=== PATIENT | female | born 2000 | race Caucasian/White ===

== ENCOUNTER → 2024-05-14 13:46 | Outpatient (CLI) | payer OTHER, SELFPAY ==
[2024-05-14 15:23] LABS: Natera Collection Specimen Collected
[2024-05-14 15:29] LABS: Add Manual Diff / Slide Review NO; Basophils Absolute Auto 0 /uL (0-100); Basophils Percent Auto 0.3 % (0-2); Eosinophils Absolute Auto 200 /uL (0-450); Eosinophils Percent Auto 1.4 % (2-4); Hematocrit 39.5 % (36-46); Hemoglobin 13.2 g/dL (12.0-16.0); Lymphocytes Absolute Auto 2600 /uL (1100-4500); Lymphocytes Percent Auto 21.2 % (25-40); Mean Corpuscular HGB Conc 33.3 % (30-36); Mean Corpuscular Hemoglobin 30.3 PG (26-34); Mean Corpuscular Volume 90.8 fL (80-100); Monocytes Absolute Auto 900 /uL (0-900); Monocytes Percent Auto 7.4 % (3-14); Neutrophils Absolute Auto 8600 /uL (1500-7000); Neutrophils Percent Auto 69.7 % (50-75); Platelet Count 197 X10^3/uL (150-400); Red Blood Cell Count 4.36 X10^6/uL (4.0-5.2); Red Cell Distribution Width 13.3 % (11.6-14.8); White Blood Cell Count 12.3 X10^3/uL (4.5-11.0)
[2024-05-14 20:26] LABS: Urine N gonorrhoeae NOT DETECTED
[2024-05-14 20:27] LABS: Urine Chlamydia NOT DETECTED
[2024-05-16 12:38] LABS: Varicella IgG Antibody Reactive (Non Reactive)
[2024-05-17 16:07] LABS: Hepatitis B Surface Antigen NEGATIVE s/c (NEGATIVE); Rubella Antibody IgG 18.7 IU/mL (>15)
[2024-05-17 16:15] LABS: HIV 1 & 2 Ab/Ag 4th Gen Combo NEGATIVE (NEGATIVE); Hep C Virus Ab w/Reflex Quant NEGATIVE s/c (NEGATIVE)
[2024-05-18 03:37] LABS: RPR Screen Non Reactive (Non Reactive)
== END ==
PROVIDERS: PCP Nurse Practitioner Family; Referring Provider Obstetrics & Gynecology; Visit Provider Obstetrics & Gynecology
DX: Z34.01 Encounter for supervision of normal first pregnancy, first trimester (principal); Z11.3 Encounter for screening for infections with a predominantly sexual mode of transmission; Z3A.11 11 weeks gestation of pregnancy
CPT/HCPCS: 80055; 86787; 86803; 86850; 86900; 86901; 87389; 87491; 87591

== ENCOUNTER 2024-06-28 14:15 | Emergency (ER) | payer OTHER, SELFPAY ==
[2024-06-28 14:21] VITALS: BP 131/76; PULSE 105; RESP 20; TEMP 37.3; O2SAT 100; BMI 27.4
--- NOTE | 2024-06-28 14:29 | DI.RAD.S_ITS ---
PROCEDURE: XR CHEST 1V INDICATIONS: Shortness of breath TECHNIQUE: One view of the chest was acquired. COMPARISON: None. FINDINGS: Surgical changes and devices: None. Lungs and pleura: Lungs are clear. No pleural effusions or pneumothorax. Mediastinum: Mediastinal contours appear normal. Heart size is normal. Bones and chest wall: No suspicious bony lesions. Overlying soft tissues appear unremarkable. IMPRESSION: No acute cardiopulmonary abnormality is seen. Dictated by: Robbie Lawson M.D. on 06/28/2024 at 14:51 Approved by: Robbie Lawson M.D. on 06/28/2024 at 14:52
[2024-06-28 14:37] VITALS: PULSE 90; RESP 20; O2SAT 100
[2024-06-28] MEDS: ALBUTEROL 2.5 MG/3 ML NEB (ADULT) INH (14:37)
[2024-06-28 16:20] VITALS: BP 132/67; PULSE 87; RESP 18; O2SAT 99
[2024-06-28 17:45] VITALS: BP 136/75; PULSE 79; RESP 18; O2SAT 100
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
[2024-06-28 19:44] VITALS: BP 129/68; PULSE 77; RESP 16; TEMP 36.8; O2SAT 100
== END 2024-06-28 19:44 | disposition home or self-care (01) ==
PROVIDERS: Emergency Provider Student in an Organized Health Care Education/Training Program; PCP Nurse Practitioner Family
DX: R05.9 Cough, unspecified (principal); T59.811A Toxic effect of smoke, accidental (unintentional), initial encounter
CPT/HCPCS: 71045; 94640; 99283; J7613

== ENCOUNTER → 2024-07-05 14:47 | Outpatient (CLI) | payer OTHER, SELFPAY ==
--- NOTE | 2024-07-05 14:49 | DI.US.S_ITS ---
PROCEDURE: US OB >= 14 WEEKS FETUS INDICATIONS: 20 week anatomy scan OUTSIDE/PRIOR DATING DATA: Last menstrual period (LMP): 12/22/2023. LMP-based estimated date of delivery (OJSEPH): 6.225. First dating scan (date and location): 07/05/2024. Estimated date of delivery (JOSEPH) from first dating scan: 11/28/2024. The calculations are made using the Clinical/ultrasound JOSEPH of 11/28/2024. TECHNIQUE: Real-time scanning was performed of the fetus, with image documentation and biometric measurements. COMPARISON: None. FINDINGS: General: A single living intrauterine gestation is present. Presentation: Vertex. Placenta: Placental position is anterior , without previa. Amniotic fluid index: 12.8 cm, normal range is 5-24 cm. Single deepest vertical pocket is 5.5 cm. heart rate: 158 beats per minute. Maternal cervical canal: 3.8 cm long. Normal lower limit is 2.5 cm. biometrics: Biparietal diameter: 4.4 cm 19 weeks 3 days Head circumference: 15.7 cm 18 weeks 5 days Abdominal circumference: 13.2 cm 18 weeks 5 days Femur length: 2.8 cm 18 weeks 4 days Clinically estimated gestational age: 19 weeks 1 day Composite gestational age from present scan: 18 weeks 6 days Estimated weight and percentile: 250 g 20th percentile Anatomic survey: Neuro: Ventricles are non-dilated at less than 10 mm. Cisterna magna is normal at 3-11 mm. Cerebellum is normal in size and morphology. Nuchal skin fold: Normal at less than 6 mm between 14-21 weeks gestational age. Face: Nose and lips, facial profile are not well seen. Spine: No evidence for spina bifida. Heart: 4-chambered heart is present, with normal ventricular outflow tracts. Diaphragm: Diaphragm is intact. Stomach: Left-sided stomach is present. Kidneys: No hydronephrosis. Normal is less than 5 mm in 2nd trimester, less than 7 mm in 3rd trimester. Cord: 3-vessel cord has orthotopic insertion. Bladder: Normal in size. Extremities: All 4 extremities identified. IMPRESSION: Single live intrauterine with gestational age of 18 weeks 6 days. Nose/lips and profile are not well seen. Recommend interval follow-up. We strive to produce accurate, complete, and clear reports of imaging services. To assist us in improving patient care, this report was composed using standard report templates and voice recognition software. Therefore, it may contain abnormal punctuation, insertions and/or omissions. Occasional wrong-word or sound-alike substitutions may occur. Though we review the report and make efforts to correct it, we do recommend that the report be read carefully in proper context to recognize any text inaccuracies. Dictated by: Liz Núñez M.D. on 07/06/2024 at 9:49 Approved by: Liz Núñez M.D. on 07/06/2024 at 9:52
== END ==
PROVIDERS: PCP Nurse Practitioner Family; Referring Provider Obstetrics & Gynecology; Visit Provider Obstetrics & Gynecology
DX: Z34.02 Encounter for supervision of normal first pregnancy, second trimester (principal); Z3A.18 18 weeks gestation of pregnancy
CPT/HCPCS: 76811

== ENCOUNTER → 2024-09-03 11:42 | Outpatient (CLI) | payer OTHER, SELFPAY ==
[2024-09-03 13:51] LABS: Hematocrit 35.6 % (36-46)
[2024-09-03 14:11] LABS: GTT (PREG) 1 Hour PP 50gm Dose 92 mg/dL (76-139)
== END ==
PROVIDERS: PCP Nurse Practitioner Family; Referring Provider Obstetrics & Gynecology; Visit Provider Obstetrics & Gynecology
DX: Z34.00 Encounter for supervision of normal first pregnancy, unspecified trimester (principal); Z13.0 Encounter for screening for diseases of the blood and blood-forming organs and certain disorders involving the immune mechanism; Z13.1 Encounter for screening for diabetes mellitus
CPT/HCPCS: 82950; 85014; 85018; 87086

== ENCOUNTER → 2024-10-22 15:43 | Outpatient (CLI) | payer OTHER, SELFPAY ==
[2024-10-22 16:27] LABS: Add Manual Diff / Slide Review NO; Basophils Absolute Auto 0 /uL (0-100); Basophils Percent Auto 0.2 % (0-2); Eosinophils Absolute Auto 300 /uL (0-450); Eosinophils Percent Auto 2.2 % (2-4); Hematocrit 37.4 % (36-46); Hemoglobin 12.7 g/dL (12.0-16.0); Lymphocytes Absolute Auto 2400 /uL (1100-4500); Mean Corpuscular Hemoglobin 31.5 PG (26-34); Mean Corpuscular Volume 92.6 fL (80-100); Monocytes Absolute Auto 1200 /uL (0-900); Monocytes Percent Auto 9.8 % (3-14); Neutrophils Absolute Auto 8500 /uL (1500-7000); Neutrophils Percent Auto 68.8 % (50-75); Platelet Count 144 X10^3/uL (150-400); Red Blood Cell Count 4.04 X10^6/uL (4.0-5.2); Red Cell Distribution Width 13.8 % (11.6-14.8); White Blood Cell Count 12.4 X10^3/uL (4.5-11.0)
[2024-10-22 16:48] LABS: Alanine Aminotransferase 47 IU/L (<35); Albumin 3.8 g/dL (3.5-5.0); Albumin Globulin Ratio 1.4 (1.0-2.8); Alkaline Phosphatase 90 U/L (38-126); Aspartate Aminotransferase 41 IU/L (14-36); BUN Creatinine Ratio 22.6 (6-22); Bilirubin Total 0.2 mg/dL (0.2-1.3); Blood Urea Nitrogen 14 mg/dL (7-17); Calcium 9.8 mg/dL (8.4-10.2); Carbon Dioxide 24 mmol/L (22-32); Chloride 103 mmol/L (98-107); Estimated Glomerular Filt Rate > 60 mL/min (>60); Globulin 2.8 g/dL (1.7-4.1); Glucose 94 mg/dL (70-99); HEMOLYSIS < 15 (0-50); Potassium 3.8 mmol/L (3.4-5.1); Sodium 136 mmol/L (137-145); Total Protein 6.6 g/dL (6.3-8.2)
== END ==
LOC: LAB 15:44
PROVIDERS: PCP Nurse Practitioner Family; Referring Provider Obstetrics & Gynecology; Visit Provider Obstetrics & Gynecology
DX: R04.0 Epistaxis (principal)
CPT/HCPCS: 36415; 80053; 85025

== ENCOUNTER 2024-10-25 16:17 | Observation (INO) | payer OTHER, SELFPAY ==
[2024-10-25 16:57] LABS: Add Manual Diff / Slide Review NO; Basophils Absolute Auto 100 /uL (0-100); Basophils Percent Auto 0.7 % (0-2); Eosinophils Absolute Auto 200 /uL (0-450); Eosinophils Percent Auto 1.6 % (2-4); Hematocrit 35.9 % (36-46); Hemoglobin 12.2 g/dL (12.0-16.0); Lymphocytes Absolute Auto 2300 /uL (1100-4500); Lymphocytes Percent Auto 19.2 % (25-40); Mean Corpuscular Hemoglobin 30.9 PG (26-34); Mean Corpuscular Volume 91.1 fL (80-100); Monocytes Absolute Auto 1100 /uL (0-900); Monocytes Percent Auto 9.2 % (3-14); Neutrophils Absolute Auto 8400 /uL (1500-7000); Neutrophils Percent Auto 69.3 % (50-75); Platelet Count 139 X10^3/uL (150-400); Red Blood Cell Count 3.95 X10^6/uL (4.0-5.2); Red Cell Distribution Width 13.9 % (11.6-14.8); White Blood Cell Count 12.1 X10^3/uL (4.5-11.0)
[2024-10-25 17:34] LABS: Alanine Aminotransferase 41 IU/L (<35); Albumin 3.8 g/dL (3.5-5.0); Albumin Globulin Ratio 1.3 (1.0-2.8); Alkaline Phosphatase 87 U/L (38-126); Aspartate Aminotransferase 37 IU/L (14-36); Bilirubin Total 0.1 mg/dL (0.2-1.3); Blood Urea Nitrogen 14 mg/dL (7-17); Calcium 9.3 mg/dL (8.4-10.2); Carbon Dioxide 24 mmol/L (22-32); Chloride 105 mmol/L (98-107); Estimated Glomerular Filt Rate > 60 mL/min (>60); Glucose 91 mg/dL (70-99); HEMOLYSIS < 15 (0-50); Potassium 3.7 mmol/L (3.4-5.1); Sodium 135 mmol/L (137-145); Total Protein 6.8 g/dL (6.3-8.2); Uric Acid 3.1 mg/dL (2.5-6.2)
[2024-10-25 17:48] LABS: Creatinine Urine Random 18.64 mg/dL; Protein (Total) Urine Random 16 mg/dL (0-12); Protein Creatinine Ratio Urine 0.85 GRAM/24H
== END 2024-10-25 18:30 | disposition home or self-care (01) ==
PROVIDERS: Admitting Provider Obstetrics & Gynecology; PCP Nurse Practitioner Family; Referring Provider Obstetrics & Gynecology; Visit Provider Obstetrics & Gynecology
DX: O16.3 Unspecified maternal hypertension, third trimester (principal); Z3A.35 35 weeks gestation of pregnancy
CPT/HCPCS: 36415; 59025; 59050; 80053; 84550; 85025; G0378; G0379

== ENCOUNTER 2024-10-27 10:33 | Outpatient (CLI) | payer OTHER, SELFPAY ==
[2024-10-27 11:15] LABS: Add Manual Diff / Slide Review NO; Basophils Absolute Auto 100 /uL (0-100); Basophils Percent Auto 0.5 % (0-2); Eosinophils Absolute Auto 200 /uL (0-450); Eosinophils Percent Auto 2.2 % (2-4); Hematocrit 38.3 % (36-46); Hemoglobin 12.7 g/dL (12.0-16.0); Lymphocytes Absolute Auto 2000 /uL (1100-4500); Lymphocytes Percent Auto 18.3 % (25-40); Mean Corpuscular HGB Conc 33.2 % (30-36); Mean Corpuscular Hemoglobin 30.8 PG (26-34); Mean Corpuscular Volume 92.8 fL (80-100); Monocytes Absolute Auto 800 /uL (0-900); Neutrophils Absolute Auto 8000 /uL (1500-7000); Platelet Count 144 X10^3/uL (150-400); Red Blood Cell Count 4.13 X10^6/uL (4.0-5.2); Red Cell Distribution Width 13.8 % (11.6-14.8); White Blood Cell Count 11.1 X10^3/uL (4.5-11.0)
[2024-10-27 11:32] LABS: Alanine Aminotransferase 42 IU/L (<35); Albumin 3.9 g/dL (3.5-5.0); Albumin Globulin Ratio 1.3 (1.0-2.8); Alkaline Phosphatase 89 U/L (38-126); Aspartate Aminotransferase 40 IU/L (14-36); BUN Creatinine Ratio 19.6 (6-22); Bilirubin Total 0.4 mg/dL (0.2-1.3); Blood Urea Nitrogen 11 mg/dL (7-17); Calcium 9.5 mg/dL (8.4-10.2); Carbon Dioxide 20 mmol/L (22-32); Chloride 105 mmol/L (98-107); Estimated Glomerular Filt Rate > 60 mL/min (>60); Globulin 3.1 g/dL (1.7-4.1); Glucose 98 mg/dL (70-99); HEMOLYSIS < 15 (0-50); Potassium 3.8 mmol/L (3.4-5.1); Sodium 135 mmol/L (137-145)
[2024-10-27 12:22] LABS: Protein (Total) Urine Random 11 mg/dL (0-12)
[2024-10-27 12:27] LABS: Collection Time Urine 24 Hours; Total Protein 24 Hour Urine 220 mg/day (42-225); Total Volume Urine 2000 mL
== END 2024-10-27 12:15 | disposition home or self-care (01) ==
LOC: OB 10-28 11:11
PROVIDERS: PCP Nurse Practitioner Family; Referring Provider Obstetrics & Gynecology; Visit Provider Obstetrics & Gynecology
DX: Z34.03 Encounter for supervision of normal first pregnancy, third trimester (principal); Z3A.35 35 weeks gestation of pregnancy
CPT/HCPCS: 36415; 59025; 80053; 84156; 85025; G0378; G0379

== ENCOUNTER → 2024-11-03 14:33 | Outpatient (CLI) | payer OTHER, SELFPAY ==
[2024-11-04 14:00] LABS: Strep Grp B PCR NEG for Grp B Strep
== END ==
PROVIDERS: PCP Nurse Practitioner Family; Visit Provider Obstetrics & Gynecology
DX: Z36.85 Encounter for antenatal screening for Streptococcus B (principal)
CPT/HCPCS: 87653

== ENCOUNTER 2024-11-03 15:38 | Outpatient (CLI) | payer OTHER, SELFPAY ==
[2024-11-03 16:11] LABS: Add Manual Diff / Slide Review NO; Basophils Absolute Auto 100 /uL (0-100); Basophils Percent Auto 0.5 % (0-2); Eosinophils Absolute Auto 200 /uL (0-450); Eosinophils Percent Auto 1.9 % (2-4); Hematocrit 37.4 % (36-46); Lymphocytes Absolute Auto 2300 /uL (1100-4500); Lymphocytes Percent Auto 19.2 % (25-40); Mean Corpuscular HGB Conc 34.6 % (30-36); Mean Corpuscular Hemoglobin 31.5 PG (26-34); Monocytes Absolute Auto 1200 /uL (0-900); Monocytes Percent Auto 9.7 % (3-14); Neutrophils Absolute Auto 8200 /uL (1500-7000); Neutrophils Percent Auto 68.7 % (50-75); Platelet Count 142 X10^3/uL (150-400); Red Blood Cell Count 4.11 X10^6/uL (4.0-5.2); White Blood Cell Count 11.9 X10^3/uL (4.5-11.0)
[2024-11-03 16:28] LABS: Alanine Aminotransferase 28 IU/L (<35); Albumin 3.8 g/dL (3.5-5.0); Albumin Globulin Ratio 1.2 (1.0-2.8); Alkaline Phosphatase 94 U/L (38-126); Aspartate Aminotransferase 33 IU/L (14-36); Bilirubin Total 0.3 mg/dL (0.2-1.3); Blood Urea Nitrogen 13 mg/dL (7-17); Calcium 9.6 mg/dL (8.4-10.2); Carbon Dioxide 19 mmol/L (22-32); Chloride 106 mmol/L (98-107); Estimated Glomerular Filt Rate > 60 mL/min (>60); Globulin 3.1 g/dL (1.7-4.1); Glucose 89 mg/dL (70-99); HEMOLYSIS < 15 (0-50); Potassium 3.7 mmol/L (3.4-5.1); Sodium 134 mmol/L (137-145); Total Protein 6.9 g/dL (6.3-8.2)
--- NOTE | 2024-11-03 16:31 | PM.OBTRLD ---
Visit Information Visit Information Date of evaluation: 11/03/24 Primary OB Provider: Denice Stewart On-call OB Provider: Denice Stewart Reason for Evaluation: Yes non-stress test Comments/Additional reasons for admission: scheduled NST, prior labs consistent with developing PIH Vital Signs Vital Signs: wnl, reviewe in [facility] Medical History (Updated 07/13/24 @ 00:01 by ) Concussion Surgical History (Updated 05/31/24 @ 18:57 by Cassie Escobar) [place] teeth extracted (~2015) Family History (Updated 05/31/24 @ 18:59 by Cassie Escobar) Grandfather Diabetes mellitus Father Pituitary benign neoplasm Aunt Gestational diabetes Mother Chronic ITP (idiopathic thrombocytopenia) Sister Hyperthyroidism Grandfather Diabetes mellitus Grandmother Hypothyroidism Social History marital status: number of children: 0 household members: spouse lives independently: Yes caregiver/support person: No housing: other (cabin) pets and animals: Yes (dogs, cat; managing litter box) education level: college (bachelor's degree) occupational status: employed (currently [employer], also [employer] as [employer]) current occupational exposures/hazards: No special ashanti needs: No travel history: recent (domestic only) seatbelt use: always water heater temp set < 120 deg: Yes working smoke detector in home: Yes fire extinguisher in home: Yes carbon monox detector in home: Yes firearms in home: Yes firearms unloaded and locked: Yes do you feel safe at home: Yes second hand exposure: No alcohol intake: former (0-2/week when not ) substance use type: does not use during the past year weight has: remained stable well-balanced diet: about half the time daily servings fruits/ve-4 caffeine: Yes (~1 cup coffee or tea daily) Type(s) of exercise: walking and other (hiking) Review of Systems Review of Systems ROS: Yes All systems reviewed with the patient and are negative except as otherwise documented Objective Labs 11/03/24 16:00 11/03/24 16:00 Labs: Laboratory Results - last 24 hr 11/03/24 16:00 WBC 11.9 H RBC 4.11 Hgb 13.0 Hct 37.4 MCV 91.0 MCH 31.5 MCHC 34.6 RDW 14.0 Plt Count 142 L Neut % (Auto) 68.7 Lymph % (Auto) 19.2 L [place] % (Auto) 9.7 Eos % (Auto) 1.9 L Baso % (Auto) 0.5 Neut # (Auto) 8200 H Lymph # (Auto) 2300 [place] # (Auto) 1200 H Eos # (Auto) 200 Baso # (Auto) 100 Sodium 134 L Potassium 3.7 Chloride 106 Carbon Dioxide 19 L BUN 13 Creatinine 0.50 L Estimated GFR > 60 BUN/Creatinine Ratio 26.0 H Glucose 89 Uric Acid 3.0 Calcium 9.6 Total Bilirubin 0.3 AST 33 ALT 28 Alkaline Phosphatase 94 Total Protein 6.9 Albumin 3.8 Globulin 3.1 Albumin/Globulin Ratio 1.2 Evaluation Evaluation Baseline heart rate: 140 Variability: Moderate (11-25) monitor accelerations: Present Monitor Decelerations: Absent Category of Tracing: Reactive Status: Category l Diagnosis, Plan/Disposition Plan/Disposition Plan: strict precautions, f.u as scheduled OB Disposition: home
== END 2024-11-03 16:31 | disposition home or self-care (01) ==
LOC: LABOR 16:12 → OB 11-05 07:34
PROVIDERS: PCP Nurse Practitioner Family; Referring Provider Obstetrics & Gynecology; Visit Provider Obstetrics & Gynecology
DX: O47.03 False labor before 37 completed weeks of gestation, third trimester (principal); Z3A.36 36 weeks gestation of pregnancy; Z36.85 Encounter for antenatal screening for Streptococcus B
CPT/HCPCS: 36592; 59025; 80053; 84550; 85025; 87653; G0378; G0379

== ENCOUNTER 2024-11-10 15:03 | Outpatient (CLI) | payer OTHER, SELFPAY ==
[2024-11-10 16:20] LABS: Add Manual Diff / Slide Review NO; Basophils Absolute Auto 0 /uL (0-100); Basophils Percent Auto 0.4 % (0-2); Eosinophils Absolute Auto 200 /uL (0-450); Eosinophils Percent Auto 1.9 % (2-4); Hematocrit 38.8 % (36-46); Lymphocytes Absolute Auto 2300 /uL (1100-4500); Lymphocytes Percent Auto 20.8 % (25-40); Mean Corpuscular HGB Conc 33.4 % (30-36); Mean Corpuscular Hemoglobin 30.8 PG (26-34); Mean Corpuscular Volume 92.1 fL (80-100); Monocytes Absolute Auto 1200 /uL (0-900); Neutrophils Absolute Auto 7400 /uL (1500-7000); Neutrophils Percent Auto 65.9 % (50-75); Platelet Count 116 X10^3/uL (150-400); Red Blood Cell Count 4.21 X10^6/uL (4.0-5.2); White Blood Cell Count 11.2 X10^3/uL (4.5-11.0)
[2024-11-10 16:27] LABS: Alanine Aminotransferase 40 IU/L (<35); Albumin 3.7 g/dL (3.5-5.0); Albumin Globulin Ratio 1.2 (1.0-2.8); Alkaline Phosphatase 105 U/L (38-126); Aspartate Aminotransferase 43 IU/L (14-36); Bilirubin Total 0.3 mg/dL (0.2-1.3); Blood Urea Nitrogen 11 mg/dL (7-17); Calcium 9.3 mg/dL (8.4-10.2); Carbon Dioxide 21 mmol/L (22-32); Chloride 107 mmol/L (98-107); Estimated Glomerular Filt Rate > 60 mL/min (>60); Glucose 85 mg/dL (70-99); HEMOLYSIS < 15 (0-50); Sodium 136 mmol/L (137-145); Total Protein 6.7 g/dL (6.3-8.2); Uric Acid 3.9 mg/dL (2.5-6.2)
[2024-11-10 17:08] LABS: Creatinine Urine Random 83.57 mg/dL; Protein (Total) Urine Random 14 mg/dL (0-12); Protein Creatinine Ratio Urine 0.16 GRAM/24H
== END 2024-11-10 16:00 | disposition home or self-care (01) ==
LOC: LABOR 15:23 → OB 11-11 09:41
PROVIDERS: PCP Nurse Practitioner Family; Referring Provider Obstetrics & Gynecology; Visit Provider Obstetrics & Gynecology
DX: Z34.03 Encounter for supervision of normal first pregnancy, third trimester (principal); Z3A.37 37 weeks gestation of pregnancy
CPT/HCPCS: 36415; 59025; 80053; 84550; 85025; G0378; G0379

== ENCOUNTER → 2024-11-16 15:45 | Outpatient (CLI) | payer OTHER, SELFPAY | PROVIDERS: PCP Nurse Practitioner Family; Referring Provider Obstetrics & Gynecology; Visit Provider Obstetrics & Gynecology | DX: O47.1 False labor at or after 37 completed weeks of gestation (principal); Z3A.38 38 weeks gestation of pregnancy ==

== ENCOUNTER 2024-11-16 15:53 | Outpatient (CLI) | payer OTHER, SELFPAY ==
[2024-11-16 16:27] LABS: Add Manual Diff / Slide Review NO; Basophils Absolute Auto 100 /uL (0-100); Basophils Percent Auto 0.7 % (0-2); Eosinophils Absolute Auto 200 /uL (0-450); Hematocrit 40.7 % (36-46); Lymphocytes Absolute Auto 2300 /uL (1100-4500); Mean Corpuscular HGB Conc 34.3 % (30-36); Mean Corpuscular Hemoglobin 31.4 PG (26-34); Mean Corpuscular Volume 91.6 fL (80-100); Monocytes Absolute Auto 1000 /uL (0-900); Monocytes Percent Auto 8.2 % (3-14); Neutrophils Absolute Auto 8100 /uL (1500-7000); Neutrophils Percent Auto 69.1 % (50-75); Platelet Count 128 X10^3/uL (150-400); Red Blood Cell Count 4.45 X10^6/uL (4.0-5.2); White Blood Cell Count 11.8 X10^3/uL (4.5-11.0)
[2024-11-16 16:50] LABS: Alanine Aminotransferase 34 IU/L (<35); Albumin 4.1 g/dL (3.5-5.0); Albumin Globulin Ratio 1.2 (1.0-2.8); Alkaline Phosphatase 126 U/L (38-126); Aspartate Aminotransferase 38 IU/L (14-36); BUN Creatinine Ratio 18.5 (6-22); Bilirubin Total 0.4 mg/dL (0.2-1.3); Blood Urea Nitrogen 12 mg/dL (7-17); Calcium 9.7 mg/dL (8.4-10.2); Carbon Dioxide 20 mmol/L (22-32); Chloride 105 mmol/L (98-107); Estimated Glomerular Filt Rate > 60 mL/min (>60); Globulin 3.5 g/dL (1.7-4.1); Glucose 90 mg/dL (70-99); HEMOLYSIS < 15 (0-50); Potassium 3.9 mmol/L (3.4-5.1); Sodium 136 mmol/L (137-145); Total Protein 7.6 g/dL (6.3-8.2)
[2024-11-16 17:11] LABS: Creatinine Urine Random 67.31 mg/dL; Protein (Total) Urine Random 7 mg/dL (0-12)
== END 2024-11-16 17:20 | disposition home or self-care (01) ==
LOC: OB 11-17 12:50
PROVIDERS: PCP Nurse Practitioner Family; Referring Provider Obstetrics & Gynecology; Visit Provider Obstetrics & Gynecology
DX: O14.93 Unspecified pre-eclampsia, third trimester (principal); Z3A.38 38 weeks gestation of pregnancy
CPT/HCPCS: 36415; 59025; 80053; 82570; 84156; 85025; G0378; G0379

== ENCOUNTER 2024-11-17 17:24 | Inpatient (IN) | payer OTHER, SELFPAY ==
--- NOTE | 2024-11-17 18:34 | PM.OBHP.IH.1 ---
OB HPI Date/Time Date of admission: 11/17/24 Date Patient Seen: 11/17/24 Time Patient Seen: 18:00 History of Present Condition Chief complaint: IOL JOSEPH Calculator Estimated Delivery Date Method Current WG Current Estimate 11/28/24 LMP (Certain) 38w 3d Other Estimates 11/29/24 Ultrasound #1 38w 2d Estimated Gestational Age (weeks): 38w3d : 1 Narrative: 24yo G1 at 38w3d D=11wk US presents for scheduled, medically indicated induction of labor at term. Patient has received routine PNC throughout . course notable for excessive maternal weight gain (61#) newly identified thrombocytopenia with associated mild transaminitis at 36wga. Initial Pr/Cr 0.85, 24h urine protein wnl <300 (200), preserved renal function. Since identification of additional lab abnormality pt has had serial NST/PIH labs that have been somewhat labile, thrombocytopenia aura 116k, max AST 47, max ALT 47. At time of last PNC encounter 11/16 patient was noted to have development of moderate peripheral edema and in discussion with patient and partner in a shared decision making model decision was made to proceed with IOL this evening. +FM, denies VB, LOF, dysuria. Continues to have intermittent cramping, nothing regular or consistent. care: good care Dating criteria OB: LMP confirmed by 1st trimester US Ultrasounds: normal 1st trimester US and normal mid trimester US Obstetrical complications: other (excessive maternal weight gain, gest thrombocytopenia vs developing HELLP) Medical complications OB: other (mild intermittent asthma without exacerbation ) Indications Indication for induction OB: medical complication (gestational thrombocytopenia, features suggestive of developing HELLP, prodromal term labor ) Preadmission Labs Last OB Lab Results: Blood Type O Positive Today, 18:00 Antibody Screen Negative Today, 18:00 Hct, (36-46) 38.9 % Today, 18:00 Hgb, (12.0-16.0) 13.1 g/dL Today, 18:00 Hep Bs Antigen, (NEGATIVE) Negative s/c 05/14/24, 14:23 Hepatitis C Antibody, (NEGATIVE) Negative s/c 05/14/24, 14:23 Rubella Antibody, (>15) 18.7 IU/mL 05/14/24, 14:23 VZV IgG Antibody, (Non Reactive) Reactive 05/14/24, 14:23 Glucose 1 Hr 50 gm, (76-139) 92 mg/dL 09/03/24, 13:09 Group B Strep (PCR) Neg for grp b strep 11/03/24, 14:33 -: Chlamydia screen: negative, Gonorrhea screen: negative and Urine: negative Genetic Screens: Cell-free DNA: Normal External Labs -: Urine: negative Evaluation Evaluation Baseline heart rate: 140 Variability: Moderate (11-25) monitor accelerations: Present Monitor Decelerations: Absent Contraction Frequency (minutes): 7 Uterine Contraction Intensity: Mild Category of Tracing: Reactive Status: Category l Dilation (cm): 1 Effacement (%): 0 Dilation: 1-2 cm Effacement: 0-30% station: -4 Position of cervix: posterior Consistency: soft Gupta score: 3 PFSH Medical History (Updated 07/13/24 @ 00:01 by ) Concussion Surgical History (Updated 05/31/24 @ 18:57 by Cassie Escobar) [place] teeth extracted (~2015) Family History (Updated 05/31/24 @ 18:59 by Cassie Escobar) Grandfather Diabetes mellitus Father Pituitary benign neoplasm Aunt Gestational diabetes Mother Chronic ITP (idiopathic thrombocytopenia) Sister Hyperthyroidism Grandfather Diabetes mellitus Grandmother Hypothyroidism Social History marital status: number of children: 0 household members: spouse lives independently: Yes caregiver/support person: No housing: other (cabin) pets and animals: Yes (dogs, cat; managing litter box) education level: college (bachelor's degree) 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[employer], 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[employer]) current occupational exposures/hazards: No special ashanti needs: No travel history: recent (domestic only) seatbelt use: always water heater temp set < 120 deg: Yes working smoke detector in home: Yes fire extinguisher in home: Yes carbon monox detector in home: Yes firearms in home: Yes firearms unloaded and locked: Yes do you feel safe at home: Yes Smoking Status: Never smoker second hand exposure: No alcohol intake: former (0-2/week when not ) substance use type: does not use during the past year weight has: remained stable well-balanced diet: about half the time daily servings fruits/ve-4 caffeine: Yes (~1 cup coffee or tea daily) Type(s) of exercise: walking and other (hiking) Meds Home Medications and Allergies Home Medications ?Medication ?Instructions ?Recorded ?Confirmed ?Type choline 250 mg tablet mg PO 05/12/24 11/10/24 History vitamin-ferrous sulfate tab PO 05/12/24 11/10/24 History 27 mg iron-folic acid 0.8 mg tablet albuterol sulfate 90 mcg/actuation 2 puff inhalation QID PRN 06/28/24 11/10/24 Rx aerosol inhaler shortness of breath or wheezing #8.5 grams Allergies Allergy/AdvReac Type Severity Reaction Status Date / Time No Known Drug Allergies Allergy Unverified 11/10/24 16:03 Review of Systems Review of Systems ROS: Yes All systems reviewed with the patient and are negative except as otherwise documented OB Exam Vital signs Blood Pressure: 126/77 Pulse Rate: 83 HENMT Head: normal to inspection Resp Effort & Inspection: normal respiratory effort and able to speak in complete sentences Cardio Rate: regular rate GI Other: gravid, sonu cephalic 7# External Female Exam: Yes normal external appearance Objective Labs 11/17/24 18:00 11/17/24 18:00 Assessment and Plan Assessment and Plan Assessment and Plan narrative: 24yo G1 at 38w3d D=11wk US presents for scheduled, medically indicated IOL Gestational thrombocytopenia, features suggestive of developing HELLP Stable thrombocytopenia (aura 116k on 11/10, 121k on admission), persistent mild elevation LFTs <2x normal, progressive peripheral edema, preserved Cr, prior abnormal Pr/Cr (0.85), 24h UrProtein <300 Maternal VSS/afebrile, Cat 1 tracing SVE /k/hi, mckinney balloon catheter placed (30cc) at 1830, plan to start pitocin titration at 0030 or when mckinney expulsed cont CEFM/toco GBS neg mild intermittent asthma without recent exacerbation, no hemabate Patient is consented for IOL, vaginal delivery, vaginal operative delivery, section as well as transfusion of blood products as medically indicated. Anticipate Time-Based Coding :: [TOTAL MINUTES] spent with patient and on the chart (including review of chart, obtaining history, exam, reviewing outside data, placing orders, documenting exam and treatment plan, and counseling patient) on [DATE].
[2024-11-17 18:36] LABS: Add Manual Diff / Slide Review NO; Basophils Absolute Auto 100 /uL (0-100); Basophils Percent Auto 0.6 % (0-2); Eosinophils Absolute Auto 100 /uL (0-450); Eosinophils Percent Auto 1.3 % (2-4); Hematocrit 38.9 % (36-46); Hemoglobin 13.1 g/dL (12.0-16.0); Lymphocytes Absolute Auto 2300 /uL (1100-4500); Lymphocytes Percent Auto 21.2 % (25-40); Mean Corpuscular HGB Conc 33.8 % (30-36); Mean Corpuscular Hemoglobin 31.1 PG (26-34); Monocytes Absolute Auto 700 /uL (0-900); Monocytes Percent Auto 6.6 % (3-14); Neutrophils Absolute Auto 7700 /uL (1500-7000); Neutrophils Percent Auto 70.3 % (50-75); Platelet Count 121 X10^3/uL (150-400); Red Blood Cell Count 4.23 X10^6/uL (4.0-5.2); Red Cell Distribution Width 14.2 % (11.6-14.8); White Blood Cell Count 10.9 X10^3/uL (4.5-11.0)
[2024-11-17 18:43] LABS: Alanine Aminotransferase 31 IU/L (<35); Albumin 3.8 g/dL (3.5-5.0); Albumin Globulin Ratio 1.2 (1.0-2.8); Alkaline Phosphatase 119 U/L (38-126); Aspartate Aminotransferase 47 IU/L (14-36); BUN Creatinine Ratio 18.2 (6-22); Bilirubin Total 0.3 mg/dL (0.2-1.3); Blood Urea Nitrogen 10 mg/dL (7-17); Calcium 9.4 mg/dL (8.4-10.2); Carbon Dioxide 20 mmol/L (22-32); Chloride 105 mmol/L (98-107); Estimated Glomerular Filt Rate > 60 mL/min (>60); Globulin 3.1 g/dL (1.7-4.1); Glucose 123 mg/dL (70-99); HEMOLYSIS 25 (0-50); Potassium 3.9 mmol/L (3.4-5.1); Sodium 135 mmol/L (137-145); Total Protein 6.9 g/dL (6.3-8.2)
[2024-11-17 18:49] VITALS: BP 129/77
[2024-11-17] MEDS: LACTATED RINGERS 1,000 ML 100 ML IV (21:19)
[2024-11-17] MEDS: OXYTOCIN PREMIX 30 UNIT/500 ML PLAST..BAG IV (21:19)
[2024-11-17 22:32] VITALS: BP 126/77; PULSE 83
[2024-11-17 23:42] LABS: Creatinine Urine Random 45.51 mg/dL; Protein (Total) Urine Random 15 mg/dL (0-12); Protein Creatinine Ratio Urine 0.32 GRAM/24H
--- NOTE | 2024-11-18 17:05 | PM.OBPNLAB ---
Date/Time Date Patient Seen: 11/18/24 Time Patient Seen: 17:05 Pain Control Pain control: tolerating well Pelvic Exam Dilation (cm): 2 Effacement (%): 50 station: -3 Amniotic membrane status: Intact Contractions Contractions on admission: none Monitor mode: External Pitocin rate (mU/min): 20 Contraction frequency (min): 5 Contraction duration (min): 1 Contraction pattern: Regular Contraction phase: Resting Contraction intensity: Mild Status status: Category l Heart Rate Baseline: 135 Monitor Accelerations: Present Monitor Decelerations: Absent Monitor Variability: Moderate Assessment and Plan Assessment: induction ongoing Plan: other Comments: Patient has had little progress through the day despite being on 20 MiU of Pitocin/min. Her cervix is 50%/2 cm/-3/intermediate/posterior for a Gupta score of 3. heart rate tracing has been category 1 all day. Due to her poor Gupta score lack of progress with high-dose Pitocin, will discontinue Pitocin, allow PO intake overnight and instead ripen with misoprostol PV. Patient declines reinsertion of Palmer balloon due to discomfort with 1st insertion. Patient is aware of plan and concurs. Blood pressures remain in the normal range with occasional mild elevation but no elevations into severe range. CBC and CMP will be repeated in a.m..
[2024-11-18] MEDS: DINOPROSTONE VAG (CERVIDIL) 10 MG VAG (20:16)
[2024-11-18] MEDS: ZOLPIDEM 5 MG TABLET PO (22:52)
[2024-11-19 06:18] LABS: Add Manual Diff / Slide Review NO; Basophils Absolute Auto 100 /uL (0-100); Basophils Percent Auto 0.5 % (0-2); Eosinophils Absolute Auto 300 /uL (0-450); Eosinophils Percent Auto 2.7 % (2-4); Hematocrit 37.2 % (36-46); Hemoglobin 12.8 g/dL (12.0-16.0); Lymphocytes Absolute Auto 2400 /uL (1100-4500); Lymphocytes Percent Auto 20.9 % (25-40); Mean Corpuscular HGB Conc 34.3 % (30-36); Mean Corpuscular Hemoglobin 31.3 PG (26-34); Mean Corpuscular Volume 91.2 fL (80-100); Monocytes Absolute Auto 1100 /uL (0-900); Neutrophils Absolute Auto 7900 /uL (1500-7000); Neutrophils Percent Auto 66.9 % (50-75); Platelet Count 112 X10^3/uL (150-400); Red Blood Cell Count 4.08 X10^6/uL (4.0-5.2); Red Cell Distribution Width 13.9 % (11.6-14.8); White Blood Cell Count 11.7 X10^3/uL (4.5-11.0)
[2024-11-19 06:35] LABS: Alanine Aminotransferase 21 IU/L (<35); Albumin 3.3 g/dL (3.5-5.0); Albumin Globulin Ratio 1.1 (1.0-2.8); Alkaline Phosphatase 103 U/L (38-126); Aspartate Aminotransferase 30 IU/L (14-36); BUN Creatinine Ratio 19.3 (6-22); Bilirubin Total 0.5 mg/dL (0.2-1.3); Blood Urea Nitrogen 11 mg/dL (7-17); Carbon Dioxide 21 mmol/L (22-32); Chloride 108 mmol/L (98-107); Estimated Glomerular Filt Rate > 60 mL/min (>60); Globulin 3.1 g/dL (1.7-4.1); Glucose 80 mg/dL (70-99); HEMOLYSIS 31 (0-50); Potassium 3.8 mmol/L (3.4-5.1); Sodium 136 mmol/L (137-145); Total Protein 6.4 g/dL (6.3-8.2)
[2024-11-19] MEDS: CALCIUM CARBONATE 500 MG TAB 1000 MG PO ×3 (08:06→09:14)
--- NOTE | 2024-11-19 08:15 | PM.OBPNLAB ---
Date/Time Date Patient Seen: 11/19/24 Time Patient Seen: 07:45 Pain Control Pain control: tolerating well Pelvic Exam Effacement (%): 50 station: -3 Amniotic membrane status: Intact Contractions Monitor mode: External Contraction frequency (min): 5 Contraction pattern: Regular Contraction phase: Resting Contraction intensity: Mild Status status: Category l
[2024-11-19] MEDS: OXYTOCIN PREMIX 30 UNIT/500 ML PLAST..BAG IV (08:51)
[2024-11-19] MEDS: LACTATED RINGERS 1,000 ML 100 ML IV (08:52)
[2024-11-19] MEDS: ONDANSETRON 4 MG/2 ML INJ IV (15:36)
--- NOTE | 2024-11-19 17:41 | PM.AN.REGBLK ---
Regional Block Pre-procedure Procedure: Continuous Lumbar Epidural for L&D (with dural puncture) Attending OB provider: Denice Stewart PMH/ROS narrative: at 38 weeks induced for pre-eclampsia, now in labor and requesting epidural. See pre-anesthesia assessment for further details. ASA Class: II Labs: Hct 37.2 % (36-46) 11/19/24 06:10 Plt Count 112 X10^3/uL (150-400) L 11/19/24 06:10 Medications: Current Medications Generic Name Dose Route Start Last Admin Trade Name Freq PRN Reason Stop Dose Admin Calcium Carbonate 1,000 mg 11/17/24 18:27 11/19/24 09:14 Calcium Carbonate 500 Mg Tab PO 500 mg Q2HR PRN Administration Dyspepsia Carboprost Tromethamine 250 mcg 11/17/24 17:42 Carboprost 250 Mcg/Ml Ampul IM Q90M PRN Bleeding Diphenhydramine HCl 25 mg 11/19/24 17:39 Diphenhydramine 50 Mg/Ml Vial IV Q10M PRN Pruritis Ephedrine Sulfate 10 mg 11/19/24 17:39 Ephedrine 50 Mg/Ml Vial IV Q5M PRN Blood pressure decrease more than 20% of baseline. Oxytocin/Lactated Ringer's 30 unit in 500 mls @ 200 mls/hr 11/17/24 17:42 Oxytocin Premix IV CONT PRN Bleeding Protocol Tranexamic Acid 1,000 mg/ 100 mls @ 600 mls/hr 11/17/24 17:42 Sodium Chloride IV NOW PRN Bleeding Oxytocin/Lactated Ringer's 30 unit in 500 mls @ 2 mls/hr 11/17/24 18:30 11/19/24 08:51 Oxytocin Premix IV 2 milliunit/min TITRATE CA 2 mls/hr Protocol Administration 2 MILLIUNIT/MIN FENT 2MCG/ML BUPIV 0.125% EPI 200 mcg in 100 mls @ 6 mls/hr 11/19/24 17:45 Fentanyl/Bupiv/Ns 2mcg/Ml - 0.125% EPIDURAL CONT CA Lidocaine HCl 20 ml 11/17/24 17:42 Lidocaine 1% 20 Ml INJ INTRA-OP PRN Post Delivery Methylergonovine Maleate 0.2 mg 11/17/24 17:42 Methylergonovine 0.2 Mg Tablet PO Q6HR PRN Heavy Bleeding Mineral Oil 30 ml 11/17/24 17:42 Mineral Oil 30 Ml Udc TOP PRN PRN Version Misoprostol 800 mcg 11/17/24 17:42 Misoprostol 200 Mcg Tablet NM NOW PRN Bleeding Misoprostol 400 mcg 11/17/24 17:42 Misoprostol 200 Mcg Tablet SL NOW PRN Bleeding Nalbuphine HCl 2.5 mg 11/19/24 17:39 Nalbuphine 20 Mg/Ml Ampul IV Q10M PRN Pruritis Naloxone HCl 0.2 mg 11/17/24 17:42 Naloxone 0.4 Mg/Ml Vial IV Q2MIN PRN Opiate Reversal Ondansetron HCl 4 mg 11/17/24 18:27 11/19/24 15:36 Ondansetron 4 Mg/2 Ml Inj IV 4 mg Q4HR PRN Administration Nausea And Vomiting Oxytocin 10 unit 11/17/24 17:42 Oxytocin 10 Unit/Ml Vial IM NOW PRN Bleeding Zolpidem Tartrate 5 mg 11/18/24 17:19 11/18/24 22:52 Zolpidem 5 Mg Tablet PO 5 mg BEDTIME PRN Administration Sleep Allergies: Allergies Allergy/AdvReac Type Severity Reaction Status Date / Time No Known Drug Allergies Allergy Unverified 11/10/24 16:03 Procedure Insertion date: 11/19/24 Insertion time: 17:15 Prep/Local: 1% lidocaine (Chloraprep) Interspace: L3-4 Patient position: sitting Needle: 18 gauge Hustead (with 27g Pencan for dural puncture) Loss of resistance with: saline GABRIELLA at (cm): 6 (6.5 cm) Catheter placed at SKIN (cm): 14 Catheter in SPACE (cm): 7 (7.5 cm) Insertion: No CSF, No Blood, No Paresthesia with insertion, No Paresthesia with injection and No Test dose reaction Initial Medications TEST DOSE time: 17:16 TEST DOSE: 1.5% lidocaine with epinephrine 1:200k (mL): 3 BOLUS DOSE time: 17:18 BOLUS DOSE (mL): 6 BOLUS DOSE med: other (2 ml same as test dose, 4 ml lido 2% PF) Infusion INFUSION: 0.125% bupivacaine and with fentanyl 2 mcg/mL Initial rate (mL/hr): 8 Subsequent interventions: 21:52 - Pt appears more uncomfortable, breathing through contractions. Able to move BLE with LLE>RLE heaviness. RN reports pt is likely close to complete but needs to labor down. Bolused with 5 ml of 2% lido PF; increased epidural pump rate from 8 to 10 ml/hr. Mike Post-procedure Anesthesia date START: 11/19/24 Anesthesia time START: 17:07 Anesthesia date END: 11/19/24 Anesthesia time END: 23:05 Post-procedure Anesthesia Assessment: Yes CV function: HR/BP stable, Yes Resp function: RR/sat/airway adequate, Yes Post-op hydration adequate, Yes Pain control adequate, Yes Nausea & vomiting absent, Yes Temperature > 36 C, Yes Mental status appropriate and No Anesthesia complications
[2024-11-19] MEDS: OXYTOCIN PREMIX 30 UNIT/500 ML PLAST..BAG 999 UNIT IV (23:21)
--- NOTE | 2024-11-19 23:29 | PM.OBPRVD ---
Events: Pre-Eclampsia Labor & Delivery Delivery date: 11/19/24 Delivery Time: 23:05 Intrapartal Events: None Cervical ripening method: per Cervidil protocol Induction method: per pitocin protocol Delivery augmentation: rupture of membranes Delivery monitor: external FHT Route of delivery: Episiotomy description: None L&D Laceration Description: Periurethral - 1st Degree (Right) and Perineal - 1st Degree Delivery repair: other (Neither laceration required closure) Estimated blood loss (mL): 200 Anesthesia Type: Epidural Complications: None Narrative: Following minute 2nd stage, the patient delivered spontaneously over an intact a viable with an of and weight. Shoulder and nuchal cord were encountered and easily reduced time of delivery. No shoulder dystocia was encountered. Delayed cord clamping and immediate skin to skin contact was initiated. Once the umbilical cord was doubly clamped and cut, a cord blood sample was obtained for routine studies. The placenta was delivered with gentle traction of the umbilical cord and suprapubic countertraction. Placenta was inspected and found to be intact with a central insertion and three-vessel cord. Inspection of the vaginal introitus showed a superficial first-degree perineal laceration as well as a superficial first-degree right periurethral laceration. Both were hemostatic and did not require closure with suture. Sponge, instruments, and needle counts before and after the delivery process were in agreement and the delivery process was concluded with mother and baby having tolerated the procedure well. Baby 1: gender: Male Presentation: vertex Placenta delivery description: Spontaneous Cord Vessel Description: 3 Vessels, Nuchal Cord, Loose, Reduced and Other (Shoulder) score (1 min): 8 score (5 min): 10 weight: 7 lb 10.965 oz Plan for aftercare: Routine care and Other (Close observation for pp PEC w/ BP/labs prior to discharge)
[2024-11-20] MEDS: ACETAMINOPHEN 325 MG TABLET 650 MG PO ×3 (00:50→18:12)
[2024-11-20] MEDS: DERMOPLAST SPRAY 20% 60 ML 1 SPRAY TOP (00:52)
[2024-11-20] MEDS: WITCH HAZEL/GLYCERIN PADS 1 EACH TOP (00:53)
--- NOTE | 2024-11-20 05:02 | PATH_ITS ---
[facility] Accession Number: [id number] No. of containers..01 Tissue . 01 Material submitted: . placenta - PLACENTA . 01 Diagnosis: PLACENTA, DELIVERY: Mature, morales placenta, weight: 479 grams. Three-vessel umbilical cord without evidence of funisitis. Negative for acute chorioamnionitis, or villitis. Focal small adherent blood clot present involving less than 10% of the maternal surface, please see comment. Few scattered calcifications less than 10%. No significant infarcts present. MRV 11/30/2024 1532 Local . 01 Comment: There is small focus of adherent blood clot without underlying infarction of chorionic villi, involving less than 10% of the maternal surface. There is focal intradecidual hemorrhage and a small area of acute inflammation, without evidence of villitis. The findings overall suggest small focus of abruption. . Clinical correlation is recommended. . As part of ongoing rn quality, selected slides (A3, A4) have also been reviewed by Dr. Larissa Goss, who agrees with the interpretation. . 01 Electronically signed: . Pretty Villalpando MD, Pathologist NPI- [id number] . 01 Gross description: . Received in formalin with two identifiers and no site on jar, is a discoid morales placenta with a trimmed weight of 479 grams and measuring 17.6 x 16.9 x 2.7 cm, with no accessory lobes identified. . The membranes are crowley and translucent with no thickening identified. They insert at the margin and have a point of rupture 2.1 cm from the nearest disc edge. . The cord is 52.1 cm in length by 0.9 cm in average diameter with a presumably leftward coil and an index of approximately 1 twist per 5 cm. The cord inserts centrally and sectioning reveals unremarkable trivascular architecture with no knots or lesions identified. . The surface is blue-cruz with normal arborizing vasculature and no lesions identified. . The maternal surface is apparently complete with a small amount of thin adherent hemorrhage occupying approximately 10% of the maternal surface with no induration of the placental disc identified. Sectioning reveals a red, spongy cut surface with no discoloration or lesions identified. . Derrick Hand sections are submitted as follows: . A1: Membrane roll and placental end of cord. A2: Membrane roll and end of cord. A3: Full-thickness section with maternal surface adherent hemorrhage. A4-A6: Central full-thickness unremarkable sections. ([id number]) /MRV 11/23/2024 1430 Local . 01 Pathologist provided ICD-10: O14.90, Z34.90 . 01 CPT . 947700 Performed at: [address] [facility] [address], [place], [place] [id number] MD Akbar Garrido MD Phone: [phone]
[2024-11-20 06:34] LABS: Add Manual Diff / Slide Review NO; Basophils Absolute Auto 100 /uL (0-100); Basophils Percent Auto 0.5 % (0-2); Eosinophils Absolute Auto 0 /uL (0-450); Eosinophils Percent Auto 0.2 % (2-4); Hematocrit 36.2 % (36-46); Hemoglobin 12.4 g/dL (12.0-16.0); Lymphocytes Absolute Auto 2100 /uL (1100-4500); Lymphocytes Percent Auto 10.2 % (25-40); Mean Corpuscular HGB Conc 34.3 % (30-36); Mean Corpuscular Hemoglobin 31.1 PG (26-34); Mean Corpuscular Volume 90.7 fL (80-100); Monocytes Absolute Auto 1700 /uL (0-900); Monocytes Percent Auto 8.2 % (3-14); Neutrophils Absolute Auto 16700 /uL (1500-7000); Neutrophils Percent Auto 80.9 % (50-75); Platelet Count 118 X10^3/uL (150-400); Red Blood Cell Count 3.99 X10^6/uL (4.0-5.2); Red Cell Distribution Width 14.1 % (11.6-14.8); White Blood Cell Count 20.6 X10^3/uL (4.5-11.0)
[2024-11-20] MEDS: LANOLIN OINT 7 GM 1 APPLIC TOP (07:42)
[2024-11-20] MEDS: IBUPROFEN 600 MG TABLET PO ×3 (09:58→22:05)
--- NOTE | 2024-11-20 11:01 | PM.OBPN.1 ---
Subjective - OB Subjective Patient comments: no complaints and pain well controlled Girard baby status: doing well and nursing well feeding status: exclusively breast feeding Date Patient Seen: 11/20/24 Time Patient Seen: 11:02 Interval history: PPD#1: Doing great. Little perineal pain. Lochia light. Infant doing well also. Denies visual changes, H/A, RUQ pain. Exam Const General: cooperative HENMT Head: normal to inspection, normocephalic and atraumatic Eyes General: appearance normal, both eyes and all related structures Resp Effort & Inspection: normal respiratory effort and able to speak in complete sentences GI Inspection: normal to inspection Palpation: soft and no hepatosplenomegaly Extrem Right lower extremity: normal to inspection Objective Labs 11/20/24 06:25 11/19/24 06:10 Labs: Laboratory Results - last 24 hr 11/20/24 06:25 WBC 20.6 H D RBC 3.99 L Hgb 12.4 Hct 36.2 MCV 90.7 MCH 31.1 MCHC 34.3 RDW 14.1 Plt Count 118 L Neut % (Auto) 80.9 H Lymph % (Auto) 10.2 L [place] % (Auto) 8.2 Eos % (Auto) 0.2 L Baso % (Auto) 0.5 Neut # (Auto) 67925 H Lymph # (Auto) 2100 [place] # (Auto) 1700 H Eos # (Auto) 0 Baso # (Auto) 100 Assessment & Plan Plan day: 1 plan OB: routine care Comments: Labs in AM and discharge if BP/Labs normal or improving. Time-Based Coding :: 20 minutes spent with patient and on the chart (including review of chart, obtaining history, exam, reviewing outside data, placing orders, documenting exam and treatment plan, and counseling patient) on 11/20/2024.
[2024-11-20] MEDS: DOCUSATE 100 MG CAPSULE PO (22:06)
[2024-11-21] MEDS: ACETAMINOPHEN 325 MG TABLET 650 MG PO ×3 (00:11→12:49)
[2024-11-21] MEDS: IBUPROFEN 600 MG TABLET PO ×3 (04:07→15:56)
[2024-11-21 06:31] LABS: Add Manual Diff / Slide Review NO; Basophils Absolute Auto 100 /uL (0-100); Basophils Percent Auto 0.8 % (0-2); Eosinophils Absolute Auto 300 /uL (0-450); Eosinophils Percent Auto 2.3 % (2-4); Hematocrit 34.8 % (36-46); Hemoglobin 11.8 g/dL (12.0-16.0); Lymphocytes Absolute Auto 3400 /uL (1100-4500); Lymphocytes Percent Auto 24.5 % (25-40); Mean Corpuscular HGB Conc 33.9 % (30-36); Mean Corpuscular Volume 91.5 fL (80-100); Monocytes Absolute Auto 1100 /uL (0-900); Monocytes Percent Auto 7.9 % (3-14); Neutrophils Absolute Auto 8900 /uL (1500-7000); Neutrophils Percent Auto 64.5 % (50-75); Platelet Count 132 X10^3/uL (150-400); Red Cell Distribution Width 13.8 % (11.6-14.8); White Blood Cell Count 13.8 X10^3/uL (4.5-11.0)
[2024-11-21 06:51] LABS: Alanine Aminotransferase 19 IU/L (<35); Albumin 2.9 g/dL (3.5-5.0); Albumin Globulin Ratio 1.1 (1.0-2.8); Alkaline Phosphatase 89 U/L (38-126); Aspartate Aminotransferase 37 IU/L (14-36); BUN Creatinine Ratio 22.6 (6-22); Bilirubin Total 0.2 mg/dL (0.2-1.3); Blood Urea Nitrogen 14 mg/dL (7-17); Calcium 8.8 mg/dL (8.4-10.2); Carbon Dioxide 23 mmol/L (22-32); Chloride 107 mmol/L (98-107); Estimated Glomerular Filt Rate > 60 mL/min (>60); Globulin 2.7 g/dL (1.7-4.1); Glucose 71 mg/dL (70-99); HEMOLYSIS < 15 (0-50); Sodium 136 mmol/L (137-145); Total Protein 5.6 g/dL (6.3-8.2)
--- NOTE | 2024-11-21 11:17 | P.DS_ITS ---
Discharge Providers Provider Date of admission: 11/17/24 17:24 Discharge Date: 11/21/24 Primary care physician: SYDNIE Nguyen Consults: 11/20/24 23:33 Consult to Brush Holder Inspector Routine Comment: Discharge provider: Kiet Hyatt MD Summary Hospital Course Date Patient Seen: 11/21/24 Time Patient Seen: 11:17 Diagnoses: Intrauterine gestation, 38+ 3 weeks gestational age, delivered by spontaneous vaginal Preeclampsia without severe features Gestational thrombocytopenia Peripartum Data Delivery Method: Natural Vaginal Laceration Description: Periurethral - 1st Degree and Perineal - 1st Degree Episiotomy description: None Procedures: Continuous lumbar epidural anesthesia Spontaneous vaginal complications: none [place] 1: Gender: Male Disposition of : home Status at Discharge Cognitive/behavioral status at discharge: oriented Functional status at discharge: independent ambulation Overall status at discharge: patient is progressing back to baseline Time Spent with Patient Time attestation: Total time spent providing and/or coordinating discharge services: Time spent: Less than 30 minutes Objective Labs 11/21/24 06:20 11/21/24 06:20 Labs: Laboratory Results - last 24 hr 11/21/24 06:20 WBC 13.8 H RBC 3.80 L Hgb 11.8 L Hct 34.8 L MCV 91.5 MCH 31.0 MCHC 33.9 RDW 13.8 Plt Count 132 L Neut % (Auto) 64.5 Lymph % (Auto) 24.5 L [place] % (Auto) 7.9 Eos % (Auto) 2.3 Baso % (Auto) 0.8 Neut # (Auto) 8900 H Lymph # (Auto) 3400 [place] # (Auto) 1100 H Eos # (Auto) 300 Baso # (Auto) 100 Sodium 136 L Potassium 4.0 Chloride 107 Carbon Dioxide 23 BUN 14 Creatinine 0.62 Estimated GFR > 60 BUN/Creatinine Ratio 22.6 H Glucose 71 Calcium 8.8 Total Bilirubin 0.2 AST 37 H ALT 19 Alkaline Phosphatase 89 Total Protein 5.6 L Albumin 2.9 L Globulin 2.7 Albumin/Globulin Ratio 1.1 Exam Const General: cooperative and comfortable Nutritional Appearance: average body habitus Orientation: alert and oriented x3 HENMT Head: normal to inspection, atraumatic and abrasion Ears: hearing grossly normal bilaterally Face and sinus: face symmetric Eyes General: appearance normal, both eyes and all related structures Conjunctivae: conjunctivae normal Sclera: sclerae normal EOM: EOM intact bilaterally Neck Neck: normal visual inspection Resp Effort & Inspection: normal respiratory effort and able to speak in complete sentences GI Inspection: normal to inspection External Female Exam: other (No significant bleeding noted) Extrem General: no calf tenderness Psych Appearance: grossly normal Mental Status: mental status grossly normal Speech and Movement: speech and movement normal Mood: congruent mood Affect: normal affect Attitude: cooperative Thought Process: normal Thought Content: normal Judgment: judgment good Discharge Plan Discharge Plan Patient Disposition: Home Provider Discharge Comment: Please review the written instructions you received when you were discharged from the hospital. Your follow-up appointment will be scheduled for 6 weeks after delivery and we look forward to seeing you then. If however in the meanwhile you have any issues, concerns, or questions, please contact our office either by phone at [phone], or via the patient portal. Discharge orders & Medications Prescriptions: No Action vit-ferrous sulfat-FA 27 mg iron- 0.8 mg tablet PO choline 250 mg tablet PO albuterol sulfate 90 mcg/actuation HFA aerosol inhaler 2 puff inhalation QID PRN (Reason: shortness of breath or wheezing) Qty: 8.5 0RF Follow up/Referrals: Denice Stewart MD [Physician, PSYCHIATRIC NURSING AIDE] Referral Note: Clinic will call to schedule your follow-up appointment. Please follow-up for your appointment on Saturday November 23, 2024 at 11:00 am at the [address] [place] [address]. Please arrive by 10:45 am! Discharge Health Status Health Concerns: Patient counseled regarding potential for development late onset/ preeclampsia. She will continue to monitor for signs/symptoms of severe blood pressure elevation and be in contact with the office and signs or symptoms develop. She will be taking her blood pressure a couple of times a day and report any blood pressure recordings above 140/90 and/or symptoms of severe blood pressure elevation. Multidrug resistant organism: No MDRO Diet/Activity/Treatments Diet: Diet as Tolerated Activity: As tolerated Other treatments: [id number] Tylenol and/or ibuprofen may be used as needed for pain relief. Prdm-yzi-itpzpji stool softeners and/or MiraLax may be used as needed for constipation. Skin/Wound/Dressing Care Report to your healthcare provider any signs of infection, such as:: chills, fever, increased pain and unusual drainage Dressing: N/A Visit Report/Discharge Packet Instructions: DI for Labor and Delivery, Vaginal , DI for Depression, DI for and Nipple Soreness Stand Alone Forms: Discharge: Care Discharge Data Primary Care Provider: Ema Pike Attending Provider: Denice Stewart Admit Date/Time: 11/17/24 17:24
[2024-11-21] MEDS: LANOLIN OINT 7 GM 1 APPLIC TOP (13:57)
[2024-11-21] MEDS: DERMOPLAST SPRAY 20% 60 ML 1 SPRAY TOP (13:57)
[2024-11-21] MEDS: WITCH HAZEL/GLYCERIN PADS 1 EACH TOP (13:57)
[2024-11-21 17:46] VITALS: BP 103/69; PULSE 81; RESP 15; TEMP 36.6
== END 2024-11-21 17:46 | disposition home or self-care (01) | DRG 807 ==
PROVIDERS: Obstetrics & Gynecology; Admitting Provider Obstetrics & Gynecology; PCP Nurse Practitioner Family; Referring Provider Obstetrics & Gynecology; Visit Provider Obstetrics & Gynecology
DX: O99.12 Other diseases of the blood and blood-forming organs and certain disorders involving the immune mechanism complicating childbirth (principal); Z37.0 Single live birth; O99.52 Diseases of the respiratory system complicating childbirth; J45.20 Mild intermittent asthma, uncomplicated; Z3A.38 38 weeks gestation of pregnancy
CPT/HCPCS: 36415; 59025; 59050; 59200; 80053; 82570; 84156; 85025; 86850; 86900; 86901; G0378; G0379; J2405; J2590